=== PATIENT | male | born 1980 | race Caucasian/White ===

== ENCOUNTER 2017-06-07 04:13 | Emergency (ER) | payer OTHER ==
[2017-06-07 04:30] VITALS: BP 127/71
[2017-06-07] MEDS ORDERED: Ondansetron 4 MG/2 ML SDV IVPUSH ONE (04:43)
[2017-06-07] MEDS ORDERED: Sodium Chloride 0.9% 1,000 ML IV SCH (04:45)
[2017-06-07] MEDS ORDERED: Sodium Chloride 0.9% 10 ML Syringe FLUSH PRN (04:50)
--- NOTE | 2017-06-07 04:50 | EDM.PDOC ---
ED HPI GENERAL MEDICAL PROBLEM - General Chief Complaint: Chest Pain Stated Complaint: CHEST PAIN,COUGH Time Seen by Provider: 06/07/17 04:29 Source of Information: Reports: Patient History Limitations: Reports: No Limitations - History of Present Illness INITIAL COMMENTS - FREE TEXT/NARRATIVE: 37 y.o.w.m came this am due to pain at his RUQ of his abd. with vomiting each time he eats. Pt is on omeprazole daily. No trauma,- CAD riskfactors: Obesity, Male. Pt feels mildly nauseated. Denied GBD in the past. BP 117/71, puls 63 O2 on RA 100%, No pain at this time Onset: Unknown/Unsure Onset Date: 06/06/17 Onset Time: 06:00 Duration: Hour(s): Location: Reports: Abdomen Quality: Reports: Ache, Dull, Pressure, Throbbing Severity: Moderate Improves with: Reports: Rest Worsens with: Reports: Eating Associated Symptoms: Reports: Chest Pain (occ) Chest Pain Score (Numeric/FACES): 6 - Related Data Allergies Allergy/AdvReac Type Severity Reaction Status Date / Time aspirin Allergy Cannot Verified 06/07/17 04:28 Remember buspirone [From Bu[facility]] Allergy Bronchospas Verified 06/07/17 04:28 ms bee stings Allergy Swelling Uncoded 06/07/17 04:28 dill Allergy Hives Uncoded 06/07/17 04:28 Home Meds: Home Meds Ondansetron [Zofran ODT] 4 mg PO Q6H PRN #20 tab.dis 06/07/17 [Rx] Past Medical History Cardiovascular History: Reports: High Cholesterol, Hypertension Respiratory History: Reports: Asthma Gastrointestinal History: Reports: GERD Social & Family History - Tobacco Use Smoking Status *Q: Former Smoker Used Tobacco, but Quit: Yes Month Tobacco Last Used: quit 2004 - Caffeine Use Caffeine Use: Reports: Soda, Tea - Recreational Drug Use Recreational Drug Use: No ED ROS GENERAL - Review of Systems Review Of Systems: See Below Constitutional: Reports: Decreased Appetite HEENT: Reports: No Symptoms Respiratory: Reports: No Symptoms Cardiovascular: Reports: Chest Pain (subsiding) Endocrine: Reports: No Symptoms GI/Abdominal: Reports: Abdominal Pain (RUQ pos hernandez) : Reports: No Symptoms Musculoskeletal: Reports: No Symptoms Skin: Reports: No Symptoms Neurological: Reports: No Symptoms Psychiatric: Reports: No Symptoms Hematologic/Lymphatic: Reports: No Symptoms Immunologic: Reports: No Symptoms ED EXAM, GENERAL - Physical Exam Exam: See Below Exam Limited By: No Limitations General Appearance: Alert, WD/WN, Mild Distress Eye Exam: Bilateral Eye: Normal Inspection Ears: Normal External Exam Ear Exam: Bilateral Ear: Auricle Normal Nose: Normal Inspection, Normal Mucosa Throat/Mouth: Normal Inspection, Normal Lips Head: Atraumatic, Normocephalic Neck: Normal Inspection, Supple, Non-Tender Respiratory/Chest: No Respiratory Distress, Lungs Clear, Normal Breath Sounds Peripheral Pulses: 1+: Radial (L), Radial (R) GI/Abdominal: Normal Bowel Sounds, Rebound, Tender (RUQ) (Male) Exam: Deferred Rectal (Males) Exam: Deferred Back Exam: Normal Inspection, Full Range of Motion Extremities: Normal Inspection, Normal Range of Motion, Non-Tender, No Pedal Edema, Normal Capillary Refill Neurological: Alert, Oriented, CN II-XII Intact, Normal Cognition Psychiatric: Normal Affect, Normal Mood Skin Exam: Warm, Dry, Intact, Normal Color, No Rash Lymphatic: No Adenopathy EKG INTERPRETATION EKG Date: 06/07/17 Time: 04:15 Rhythm: NSR Rate (Beats/Min): 56 [place]: Normal P-Wave: Present QRS: Normal ST-T: Normal QT: Normal Comparison: NA - No Prior EKG Course - Vital Signs Text/Narrative:: 37 y.o.w.m came this am due to pain at his RUQ of his abd. with vomiting each time he eats. Pt is on omeprazole daily. No trauma,- CAD riskfactors: Obesity, Male. Pt feels mildly nauseated. Denied GBD in the past. BP 117/71, puls 63 O2 on RA 100%, No pain at this time PE: Morbid obese 37 y.o.w.m RUQ abd. pain Imaging: US abd. limited: Nl GB, enlarged liver/Fatty liver, official report is pending Labs: CBC and BMP were nl. including LFT ECG: NSR Impression: Hepatomegaly/Fally liver Tx: Zofran, NS Reexam: Improved, Pt is in his usual state of health, ambulating fine. Plan: D/C with instructions Last Recorded V/S: Last Vital Signs Temp 36.9 C 06/07/17 04:29 Pulse 66 06/07/17 04:29 Resp 14 06/07/17 04:29 BP 127/71 06/07/17 04:29 Pulse Ox 100 06/07/17 04:29 - Orders/Labs/Meds Orders: Active Orders 24 hr Category Date Time Status EKG Documentation Completion [RC] ASDIRECTED Care 06/07/17 04:36 Active Abdomen Ltd [US] Stat Exams 06/07/17 06:39 Taken Saline Lock Insert [OM.PC] Routine Oth 06/07/17 04:50 Ordered EKG 12 Lead [EK] Routine Ther 06/07/17 04:36 Ordered Labs: Laboratory Tests 06/07/17 06/07/17 06/07/17 Range/Units 04:45 04:45 04:45 WBC 7.6 (4.5-12.0) X10-3/uL RBC 4.81 (4.30-5.75) x10(6)uL Hgb 13.8 (11.5-15.5) g/dL Hct 39.9 (30.0-51.3) % MCV 83.0 (80-96) fL MCH 28.6 (27.7-33.6) pg MCHC 34.5 (32.2-35.4) g/dL RDW 12.3 (11.5-15.5) % Plt Count 241 (125-369) X10(3)uL MPV 8.6 (7.4-10.4) fL Neut % (Auto) 52.9 (46-82) % Lymph % (Auto) 33.4 (13-37) % Delta % (Auto) 8.3 (4-12) % Eos % (Auto) 5 (1.0-5.0) % Baso % (Auto) 1 (0-2) % Neut # (Auto) 4.0 (1.6-8.3) # Lymph # (Auto) 2.5 (0.6-5.0) # Delta # (Auto) 0.6 (0.0-1.3) # Eos # (Auto) 0.4 (0.0-0.8) # Baso # (Auto) 0.1 (0.0-0.2) # Sodium 140 (135-145) mmol/L Potassium 3.3 L (3.5-5.3) mmol/L Chloride 108 (100-110) mmol/L Carbon Dioxide 25 (23-29) mmol/L BUN 17 (5-20) mg/dL Creatinine 0.8 (0.6-1.3) mg/dL Est Cr Clr Drug Dosing 126.43 mL/min Estimated GFR (MDRD) > 60 (>60) BUN/Creatinine Ratio 21.3 H (9-20) Glucose 113 (80-116) mg/dL Calcium 9.0 (8.6-10.2) mg/dL Total Bilirubin 0.6 (0.1-1.3) mg/dL Direct Bilirubin 0.1 (0.1-0.2) mg/dL AST 27 (5-27) IU/L ALT 36 H (14-26) IU/L Alkaline Phosphatase 88 (56-112) IU/L Troponin I < 0.01 L (0.02-0.06) NG/ML Total Protein 7.4 (6.0-8.0) g/dL Albumin 4.1 (3.5-5.2) g/dL Amylase 53 (28-100) U/L Meds: Medications Discontinued Medications Generic Name Dose Route Start Last Admin Trade Name Freq PRN Reason Stop Dose Admin Sodium Chloride 1,000 mls @ 125 mls/hr 06/07/17 04:45 06/07/17 05:05 Normal Saline IV 125 mls/hr ASDIRECTED RAY Administration Ondansetron HCl 8 mg 06/07/17 04:43 06/07/17 05:08 Zofran IVPUSH 06/07/17 04:44 8 mg ONETIME ONE Administration Sodium Chloride 10 ml 06/07/17 04:50 06/07/17 04:59 Saline Flush FLUSH 10 ml ASDIRECTED PRN Administration Keep Vein Open Departure - Departure Time of Disposition: 06:04 Disposition: Home, Self-Care 01 Condition: Good Clinical Impression: Hepatomegalia, Atypical chest pain Prescriptions: Ondansetron [Zofran ODT] 4 mg PO Q6H PRN #20 tab.dis PRN Reason: Nausea Referrals: PCP,Not In Area [Primary Care Provider] - Forms: ED Department Discharge Additional Instructions: Please cont your meds including omeprazole, take zofran as recommended, please f /u, come back to the ed if your symptoms get worse acutely - My Orders Last 24 Hours: My Active Orders 06/07/17 04:36 EKG Documentation Completion [RC] ASDIRECTED EKG 12 Lead [EK] Routine 06/07/17 04:50 Saline Lock Insert [OM.PC] Routine 06/07/17 06:39 Abdomen Ltd [US] Stat - Assessment/Plan Last 24 Hours: My Active Orders 06/07/17 04:36 EKG Documentation Completion [RC] ASDIRECTED EKG 12 Lead [EK] Routine 06/07/17 04:50 Saline Lock Insert [OM.PC] Routine 06/07/17 06:39 Abdomen Ltd [US] Stat
--- NOTE | 2017-06-07 16:10 | US ---
INDICATION: Pain. RIGHT UPPER QUADRANT/GALLBLADDER ULTRASOUND: Multiple ultrasonic images revealed the liver to be echogenic, compatible with fatty infiltration. The right kidney measured 12.9 x 4.1 x 5.3 cm with a normal appearance. The gallbladder measured 6.5 x 1.2 x 1.4 cm and showed no definite evidence of wall thickening, calculi, sludge, pericholecystic fluid, or positive ultrasonic Howell sign - normal gallbladder. The IVC was phasic. The pancreas was not adequately visualized due to intestinal gas. IMPRESSION: Normal right upper quadrant/gallbladder ultrasound with respect to the gallbladder. However, there is evidence of fatty infiltration of the liver. Also, the pancreas was not visualized. MTDD
== END 2017-06-07 06:10 | disposition home or self-care (01) ==
LOC: FB.ED 04:13
DX: R07.89 Other chest pain (principal); R16.0 Hepatomegaly, not elsewhere classified; E78.00 Pure hypercholesterolemia, unspecified; I10 Essential (primary) hypertension; J45.909 Unspecified asthma, uncomplicated; K21.9 Gastro-esophageal reflux disease without esophagitis; Z87.891 Personal history of nicotine dependence; Z88.8 Allergy status to other drugs, medicaments and biological substances; Z91.030 Bee allergy status
CPT/HCPCS: 36415; 76705; 80048; 80076; 82150; 84484; 85025; 93005; 96361; 96374; 99285; J2405; J7040; J7050